=== PATIENT | male | born 1960 | race Caucasian/White ===

== ENCOUNTER 2018-06-15 10:34 | Inpatient (IN) | payer OTHER, SELFPAY ==
[2018-06-15] VITALS (60 sets, daily range): BP systolic 46–229; BP diastolic 27–141; PULSE 61–172; RESP 14–38; TEMP 36.6–37.6; O2SAT 82–100; BMI 37.2; BMI 37.1; BMI 37.3
[2018-06-15] MEDS: 0.9% Normal Saline 1,000 ML 500 ML IV (10:40)
--- NOTE | 2018-06-15 10:40 | EKG12_ITS ---
Test Reason : RYTHMCHANGE Blood Pressure : / mmHG Vent. Rate : 123 BPM Atrial Rate : 123 BPM P-R Int : 158 ms QRS Dur : 134 ms QT Int : 314 ms P-R-T Axes : 067 062 031 degrees QTc Int : 449 ms Sinus tachycardia Right bundle branch block Abnormal ECG Confirmed by KEISHA SMALL ([id number]), dictionary editor MARION JOSEPH ([id number]) on 06/18/2018 2:10:16 PM Referred By: JOSIE Confirmed By:KEISHA SMALL
--- NOTE | 2018-06-15 10:40 | RAD_ITS ---
STUDY: X-RAY CHEST REASON FOR EXAM: Male, 58 years old. Chest pain, diaphoresis TECHNIQUE: Single AP portable view of the chest. COMPARISON: None. FINDINGS: The lungs are clear and expanded. There is no demonstrated pleural abnormality. Normal size heart. Normal mediastinum and leora. Normal visualized pulmonary arteries. Normal visualized aortic arch and descending thoracic aorta. There are diffuse degenerative changes of the visualized thoracic spine. Normal visualized ribs, clavicles, and shoulders. There is no demonstrated abnormality of the visualized soft tissue structures of the upper abdomen. RAD/Chest 1 View (Portable) IMPRESSION: No acute pulmonary process Electronically Signed: Yrn Zapata MD at 11:09 EST , Service support ,
[2018-06-15] MEDS: Aspirin 81 MG TAB.CHEW 162 MG PO (10:46)
[2018-06-15] MEDS: Etomidate 20 MG/10 ML Vial 10 MG IV (10:57)
[2018-06-15 10:58] LABS: Absolute Lymphocyte Count 1.99 X10^3/ul (0.83-4.51); Absolute Neutrophil Count 19.3 X10^3/uL (2.0-7.7); Basophil# 0.02 X10^3/uL; Basophil% 0.1 % (0-1); Eosinophil# 0.03 X10^3/uL; Eosinophils% 0.1 % (0-5); Hematocrit 41.4 % (40-54); Lymphocyte # 1.99 X10^3/ul (4.0); Lymphocyte % 8.2 % (19-41); Mean Corp Hgb Conc 33.8 g/gl (32-36); Mean Corpuscular Volume 85.7 fL (80-94); Mean Platelet Vol. 10.3 fl (6.2-12.0); Monocyte# 2.95 X10^3/uL; Monocyte% 12.1 % (0-10); Neutrophil # 19.26 X10^3/uL (2.7-7.7); Neutrophil % 79.2 % (47-70); Platelet Count 293 K/mm3 (150-450); RBC Distribution Width CV 12.7 % (11.6-14.6); RBC Distribution Width SD 40.3 fl (35.1-43.9); Red Blood Count 4.83 M/mm3 (4.6-6.2); White Blood Count 24.3 K/mm3 (4.4-11.0)
[2018-06-15 10:59] LABS: Differential Indicated SCAN CRITERIA MET; POSITIVE COUNT NO; POSITIVE DIFFERENTIAL YES; POSITIVE MORPHOLOGY NO
[2018-06-15] MEDS: Rocuronium Bromide 50 MG/5 ML Vial 100 MG IV (10:59)
--- NOTE | 2018-06-15 11:00 | EKG12_ITS ---
Test Reason : CP Blood Pressure : / mmHG Vent. Rate : 147 BPM Atrial Rate : 147 BPM P-R Int : 114 ms QRS Dur : 120 ms QT Int : 334 ms P-R-T Axes : 072 080 052 degrees QTc Int : 522 ms Sinus tachycardia Right bundle branch block Abnormal ECG Confirmed by KEISHA SMALL ([id number]), social media editor MARION JOSEPH ([id number]) on 06/18/2018 2:11:13 PM Referred By: JOSIE Confirmed By:KEISHA SMALL
--- NOTE | 2018-06-15 11:02 | ED.RN ---
Dr. Hernandez at bedside.
[2018-06-15] MEDS: LORazepam 2 MG/ML Syringe 6 MG IV (11:07)
--- NOTE | 2018-06-15 11:07 | CT_ITS ---
STUDY: CTA CHEST REASON FOR EXAM: Male, 58 years old. Hypotension, hypoxia RADIATION DOSAGE (If Supplied By Facility): CTDIvol = ( 20.00 ) mGy, DLP = ( 631.09 ) mGycm TECHNIQUE: The examination was performed with the intravenous administration of 100ML ml of Isovue 370 contrast material. Post-processing of the angiographic images was performed, with multiplanar reformation and 3D reconstruction. Individualized dose optimization techniques were used for this CT. COMPARISON: None. FINDINGS: ET tube tip is 3 cm above the aniceto. Low-density filling defects noted within the distal aspects of the left pulmonary artery with extensions into the upper and lower left pulmonary lobes. There is also evidence of multiple filling defects within the right lower lobe pulmonary artery branch. Findings are consistent with bilateral PE. Normal thoracic aorta and visualized great vessels. There is no demonstrated aortic dissection. Normal heart and pericardium. There are calcifications of the coronary arteries. Normal mediastinum. Normal hilar regions. There is peribronchial thickening. The lungs are well expanded. There is a right lower lobe pneumonia with a likely right lower lobe infarct and interstitial edema. Dependent atelectasis noted in the left lung base. Normal pleura. Normal chest wall structures. There are degenerative changes of thoracic spine. Limited cuts through the upper abdomen do not show a suspicious abnormality. Normal visualized upper abdomen. CT/CTA Chest W/WO Contrast IMPRESSION: Extensive bilateral PE, more prominent on the left than the right. PE noted in the distal aspect of the left pulmonary artery, left upper and lower lobe pulmonary arteries and in the right lower lobe pulmonary artery Right lower lobe infiltrate with associated atelectasis and likely infarct Dependent atelectasis in the left lung base Degenerative bony changes Calcified coronary vessels N.B. : The above information has been verbally conveyed by Yrn Zapata MD to Shukri Martinez MD, on 06/15/2018 11:56:40 (ET). Electronically Signed: Yrn Zapata MD at 11:58 EST , Service support ,
[2018-06-15 11:11] LABS: Anion Gap 11 (5-15); BUN 11 mg/dL (7-18); Calcium,Total 8.5 mg/dL (8.5-10.1); Chloride 101 mmol/L (98-107); Creatinine, Serum 1.22 mg/dL (0.70-1.30); EST Glomerular Filtration Rate 65 mL/min (>60); Est Glom Filt Rate - Afr Amer 78 mL/min (>60); Estimated Creatinine Clearance 63.85 ml/min; Glucose 202 mg/dL (74-106); Sodium Level 134 mmol/L (136-145)
[2018-06-15] MEDS: Atropine Sulfate 1 MG/10 ML Syringe IV ×2 (11:11→11:15)
--- NOTE | 2018-06-15 11:35 | ED.VISSUMM ---
- ER Visit Summary Date of Service: 06/15/18 Chief Complaint: Chest pain, shortness of breath I am not going to make it . History of Present Illness: The patient is a 58 M who has history of coronary disease with 2 stents, hypertension and hypercholesterolemia. He also has history of MS. Pulse ox prior to arrival is unknown. His pulse ox 92% on 4 L by nasal cannula. Prior to EMS leaving their pulse ox in the field was 88%. Patient's only complaint is chest pressure shortness of breath and I am not going to make it . Physical Examination: Initial blood pressure 140/98 heart rate 154 respiratory rate 35 temperature 98.0 degrees. Patient appears asked should with poor capillary refill. Lungs reveal no wheeze rales rhonchi. Breath sounds are diminished bilaterally. Abdomen soft nontender. Is no palpable cell mass or abdominal bruit. Radial and DP pulses palpable. Patient unable to move lower extremity secondary to MS. According to he has history of coronary disease with [address] [facility] 2 years ago. She states he saw Dr. Harjinder Knight last week. Spoke with Dr. Knight he does not recall seeing the patient. Test Results: EKG rate of 147 concerning for atrial flutter. Had the paper speed increased to 50 ms and uncertain whether this is sinus tach at 150 versus atrial flutter. Since patient has deteriorated with a blood pressure 78 systolic he was prepped for cardioversion. He received 10 mg of etomidate and attempted cardioversion x2 at 200 J. Heart rate slowed to 122. EKG was obtained and reveals sinus tachycardia. There is evidence of a right bundle branch block and ST-T wave changes. There is no prior EKG for comparison. Portable chest x-ray reveals mild cardiomegaly and there is no evidence of heart failure. This raises concern for pulmonary embolus. Patient became bradycardic. He received atropine in route to the radiology suite. I accompanied him to the radiology suite. Patient developed PEA. He was treated for PEA. Please read written note by nursing staff for amounts of epinephrine, atropine, bicarb. He was started on epinephrine drip. He did require CPR. The pharmacist fill brought TPA to the radiologist suite which was started. He became hypotensive again. TPA was infused rapidly over 10 minutes. This was under my direction. The pharmacist entered heparin drip based on patient's acuity to be started immediately. Emergency Department Course and Treatment: 1. Cardioversion at 200 J x2 unsuccessful 2. Oral tracheal intubation by RSI technique for cardiogenic shock and hypoxia 3. ACLS meds for PEA 4. Right subclavian triple-lumen 5. Critical care time 63 minutes excluding billable procedure time. 6. OG per nursing staff 7. Hogan per nursing staff 8. Administration of TPA bolus by ED physician, Dr. Martinez Treatment Plan: Treat cardiogenic shock secondary to bilateral massive PE Disposition: Admit ICU Impression: 1. Cardiogenic shock secondary to bilateral pulmonary embolus 2. Respiratory failure secondary to pulmonary embolus 3. History of coronary disease This note was generated with ttwick dictation software. It may contain incorrect words, spelling, and punctuation that were not noted in review of the chart prior to signing ED Disposition - Plan for ED Patient: Chief Complaint: Chest Pain Referrals: Cruz Salgado MD [Primary Care Provider] -
[2018-06-15 12:02] LABS: International Normalized Ratio 1.2; Partial Thromboplast Time 32.2 Seconds (24.1-36.2); Prothrombin Time (Protime)PT. 14.9 SECONDS (11.7-14.9)
--- NOTE | 2018-06-15 12:04 | ED.DCSUM_ITS ---
- ER Visit Summary Date of Service: 06/15/18 Chief Complaint: Chest pain, shortness of breath I am not going to make it . History of Present Illness: The patient is a 58 M who has history of coronary disease with 2 stents, hypertension and hypercholesterolemia. He also has history of MS. Pulse ox prior to arrival is unknown. His pulse ox 92% on 4 L by nasal cannula. Prior to EMS leaving their pulse ox in the field was 88%. Patient's only complaint is chest pressure shortness of breath and I am not going to make it . Physical Examination: Initial blood pressure 140/98 heart rate 154 respiratory rate 35 temperature 98.0 degrees. Patient appears asked should with poor ca pillary refill. Lungs reveal no wheeze rales rhonchi. Breath sounds are diminished bilaterally. Abdomen soft nontender. Is no palpable cell mass or abdominal bruit. Radial and DP pulses palpable. Patient unable to move lower extremity secondary to MS. According to he has history of coronary disease with 2 stents placed at [facility] 2 years ago. She states he saw Dr. Harjinder Knight last week. Spoke with Dr. Knight he does not recall seeing the patient. Test Results: EKG rate of 147 concerning for atrial flutter. Had the paper speed increased to 50 ms and uncertain whether this is sinus tach at 150 versus atrial flutter. Since patient has deteriorated with a blood pressure 78 systolic he was prepped for cardioversion. He received 10 mg of etomidate and attempted cardioversion x2 at 200 J. Heart rate slowed to 122. EKG was obtained and reveals sinus tachycardia. There is evidence of a right bundle branch block and ST-T wave changes. There is no prior EKG for comparison. Portable chest x-ray reveals mild cardiomegaly and there is no evidence of heart failure. This raises concern for pulmonary embolus. Patient became bradycardic. He received atropine in route to the radiology suite. I accompanied him to the radiology suite. Patient developed PEA. He was treated for PEA. Please read written note by nursing staff for amounts of epinephrine, atropine, bicarb. He was started on epinephrine drip. He did require CPR. The pharmacist fill brought TPA to the radiologist suite which was started. He became hypotensive again. TPA was infused rapidly over 10 minutes. This was under my direction. The pharmacist entered heparin drip based on patient's acuity to be started immediately. Emergency Department Course and Treatment: 1. Cardioversion at 200 J x2 unsuccessful 2. Oral tracheal intubation by RSI technique for cardiogenic shock and hypoxia 3. ACLS meds for PEA 4. Right subclavian triple-lumen 5. Critical care time 63 minutes excluding billable procedure time. 6. OG per nursing staff 7. Hogan per nursing staff 8. Administration of TPA bolus by ED physician, Dr. Martinez Treatment Plan: Treat cardiogenic shock secondary to bilateral massive PE Disposition: Admit ICU Impression: 1. Cardiogenic shock secondary to bilateral pulmonary embolus 2. Respiratory failure secondary to pulmonary embolus 3. History of coronary disease This note was generated with SpectraRep dictation software. It may contain incorrect words, spelling, and punctuation that were not noted in review of the chart prior to signing ED Disposition - Plan for ED Patient: Chief Complaint: Chest Pain Referrals: Cruz Salgado MD [Primary Care Provider] -
[2018-06-15] MEDS: HEPARIN/D5w 25,000 UNITS 25,000 UNITS/250 ML IV.SOLN. 10 UNITS IV (12:09)
--- NOTE | 2018-06-15 12:09 | ECHOD_ITS ---
Reason For Study: Pulm emboli Procedure This was a 2D Doppler, Color Flow transthoracic echocardiogram. The study was technically difficult. PT SCANNED SUPINE DUE TO INTUBATION. Exam performed portable in ICU/CCU. Left Ventricle Normal size and thickness. The estimated ejection fraction is 75 %. No regional wall motion abnormalities noted. Right Ventricle Mildly dilated right ventricle. Moderately severe global right ventricular systolic dysfunction. Atria Normal left atrium. Normal right atrium. Normal atrial septum. Mitral Valve The mitral valve is structurally normal. No prolapse or stenosis seen. Tricuspid Valve Normal tricuspid valve. Mild (1+) eccentric tricuspid valve insufficiency. Right ventricular systolic pressure estimated to be 42 mmHg. Aortic Valve Normal aortic valve. Trisinus/trileaflet aortic valve. Pulmonic Valve The pulmonic valve is not well visualized. Great Vessels Normal aortic root. Normal arch. The inferior vena cava is dilated. No collapse of the inferior vena cava. Pericardium/Pleural No pericardial effusion. MMode/2D Measurements & Calculations LVIDd: 3.0 cm IVSd: 1.3 cm Ao root diam: 3.6 cm LVIDs: 1.6 cm LVPWd: 1.1 cm RVDd: 3.4 cm FS: 45.9 % LA dimension(2D): 2.8 cm Doppler Measurements & Calculations MV E max dawood: 63.8 cm/sec Lat Peak E' Dawood: 5.2 cm/sec Med Peak E' Dawood: 5.7 cm/sec MV A max dawood: 94.7 cm/sec E/E' lat: 12.4 E/E' med: 11.2 MV E/A: 0.67 Ao V2 max: 132.7 cm/sec LV V1 max: 113.8 cm/sec PA V2 max: 79.6 cm/sec Ao max P.0 mmHg LV V1 max P.2 mmHg TR max dawood: 305.2 cm/sec TR max P.3 mmHg Interpretation Summary The estimated ejection fraction is 75 % and appears underfilled. Mildly dilated right ventricle. Moderately severe global right ventricular systolic dysfunction. Mild (1+) eccentric tricuspid valve insufficiency. Right ventricular systolic pressure estimated to be 42 mmHg. Compared to outside hospital echo report dated 06/07/2016, LV funtion has remained the same, bur RVSP has increase from 32 to 43 mm Hg. RV size and function also appeared normal at that time. The study was technically limited. Ordering Physician: Tono Sarmiento D.O. Performed By: Britni Mccauley RDCS
--- NOTE | 2018-06-15 12:12 | CON.PCM_ITS ---
Reason for Consult Date of Consultation: 06/15/18 Reason for Consultation: Distributive shock/massive pulmonary embolism History of Present Illness: The patient is a 58-year-old male, with a history as outlined below, who initially presented to the emergency department on June 15 with complaints of chest pain and shortness of breath. The patient was also noted to be hypoxic in the field by EMS personnel. His reports that he has been feeling ill over the last several days with a notable cough. He does have a history of MS and is primarily wheelchair bound. He also has a known history of coronary artery disease for which he has undergone PTCA previously. On presentation to the emergency department, the patient was noted to be afebrile, tachycardic, tachypneic and hypoxic. Initial laboratory evaluation revealed an elevated white blood cell count to 24,000. Coags were within normal limits. Chemistry profile was largely unremarkable and initial troponin was negative. There was initial concern in the emergency department for the presence of atrial flutter versus sinus tachycardia. Per documentation, the patient's blood pressure deteriorated into the 70 systolic, which prompted 2 attempts at cardioversion. Over concerns for the possibility for pulmonary embolism, the decision was made to obtain a CTA chest. However, in route to radiology, the patient became bradycardic and received atropine. Nevertheless, shortly after his arrival to the radiology suite, the patient went into PEA cardiac arrest. ACLS was initiated and the patient received several rounds of epinephrine and bicarbonate. Return of spontaneous circulation was eventually achieved and the patient was able to complete the CTA chest. That imaging study demonstrated extensive bilateral clot burden along with a right lower lobe infiltrate. Shortly after the completion of the scan, the patient again experienced cardiac arrest, for which the decision was made to administer TPA for massive pulmonary embolism. The patient did have to return back to the emergency department for short period of time after the completion of the scan to stabilize the patient. A central venous catheter was placed. The patient was transitioned from an epinephrine infusion over to a Levophed drip. He was then transferred to the medical intensive care unit for ongoing management. Shortly after his arrival to the ICU, the patient became progressively hypotensive, requiring an escalation in his Levophed dose. He eventually had to be started on vasopressin and phenylephrine. Despite not receiving any form of sedation, the patient remained nonresponsive to verbal and tactile stimulation. Review of the patient's medication list did indicate that he received etomidate, Ativan and rocuronium during his emergency department stay. The exact reason for the rocuronium administration is not clear to me. Regardless, given the time that has elapsed since the aforementioned medications being administered, it was felt that the patient would have become more responsive by this time. Given the fact that the patient had received TPA, this raised concern for a potential intracranial bleed. I spent a great deal of time with the patient's and additional family members explaining his current clinical state and his overall prognosis. I did explain to them my concerns and discussed CODE STATUS with them at length. Following a family discussion, the patient's and supporting family are in agreement to transition the patient from full code to DNR CCA. Past Medical History Allergies No Known Allergies Allergy (Verified 06/15/18 10:36) Home Medications: Ambulatory Orders Medication Instructions Recorded Aspirin 325 mg PO DAILY@0800 06/15/18 Baclofen 20 mg PO 06/15/18 Furosemide [Lasix] 20 mg PO DAILY 06/15/18 Metformin HCl [Metformin HCl ER] 500 mg PO BIDCM 06/15/18 Multivitamin [Daily Multiple 1 each PO DAILY 06/15/18 Vitamin] Ocrelizumab [Ocrevus] 300 mg IV 06/15/18 Rosuvastatin Calcium 10 mg PO QHS 06/15/18 Sertraline HCl [Zoloft] 25 mg PO DAILY 06/15/18 Smoking Status: Never smoker - *Family History Maternal History Items: Unknown Review of Systems Unable to obtain accurate/complete ROS d/t: Due to current intubation and mechanical ventilation status Objective: The patient's most recent lab work, culture data and imaging studies have all been personally reviewed. - Physical Exam General: - - Currently intubated and mechanically ventilated. HEENT: Atraumatic, Normocephalic, - - Pupils are fixed, dilated and nonresponsive to light Oral: No Gingival or Mucosal Lesions/ Ulcerations, - - Endotracheal and OG tubes in place Neck: Supple, No Nodes, Trachea Midline, - - Right sided subclavian central venous catheter in place Lungs: No wheeze, Diminished, Rhonchi Cardiovascular: Normal S1, Normal S2, No murmurs, Irregular Rate, Tachycardic Abdomen: Soft, Non Tender, Hypoactive Bowel Sounds, Obese Extremities: No clubbing, No cyanosis, Cool, Diminished Peripheral Pulses, Edema Skin: No breakdown Musculoskeletal: No Tenderness to Palpation of Joints or Extremities Lymphatic: No Cervical, Supraclavicular, or Inguinal Adenopathy Neurological: - - The patient is nonsedated. He is nonresponsive to verbal, tactile and painful stimulation. No corneal or gag reflex is present. Vital Signs Temp Pulse Resp BP Pulse Ox 36.6 C 145 H 38 H 120/81 H 99 06/15/18 10:36 06/15/18 12:05 06/15/18 10:43 06/15/18 12:05 06/15/18 12:05 Oxygen Flow Rate (L/min) 4 Oxygen Delivery Method Ambu-Bag Weight: 245 lb Body Mass Index (BMI) 37.2 Laboratory Tests Past 24 Hrs 06/15/18 06/15/18 06/15/18 10:45 10:45 10:45 WBC 24.3 H RBC 4.83 Hgb 14.0 Hct 41.4 MCV 85.7 MCH 29.0 MCHC 33.8 RDW 12.7 RDW Differential 40.3 Plt Count 293 MPV 10.3 Immature Gran % (Auto) 0.300 Neut % (Auto) 79.2 H Lymph % (Auto) 8.2 L Chaves % (Auto) 12.1 H Eos % (Auto) 0.1 Baso % (Auto) 0.1 Absolute Neuts (auto) 19.3 H Absolute Lymphs (auto) 1.99 Total Counted Not Reportable Differential Comment COMMENT Diff Path Review May foll PT 14.9 INR 1.2 APTT 32.2 Sodium 134 L Potassium 4.0 Chloride 101 Carbon Dioxide 22.0 Anion Gap 11 BUN 11 Creatinine 1.22 Estim Creat Clear Calc 63.85 Est GFR (MDRD) Af Amer 78 Est GFR (MDRD) Non-Af 65 BUN/Creatinine Ratio 9.0 L Glucose 202 H Calcium 8.5 Troponin I 0.019 B-Natriuretic Peptide 06/15/18 10:45 WBC RBC Hgb Hct MCV MCH MCHC RDW RDW Differential Plt Count MPV Immature Gran % (Auto) Neut % (Auto) Lymph % (Auto) Chaves % (Auto) Eos % (Auto) Baso % (Auto) Absolute Neuts (auto) Absolute Lymphs (auto) Total Counted Differential Comment Diff Path Review PT INR APTT Sodium Potassium Chloride Carbon Dioxide Anion Gap BUN Creatinine Estim Creat Clear Calc Est GFR (MDRD) Af Amer Est GFR (MDRD) Non-Af BUN/Creatinine Ratio Glucose Calcium Troponin I B-Natriuretic Peptide Pending Clinical Impression(s) from Imaging Studies Chest X-Ray 06/15/18 10:40 IMPRESSION: No acute pulmonary process Electronically Signed: Yrn Zapata MD at 11:09 EST , Service support , Chest CTA 06/15/18 11:07 IMPRESSION: Extensive bilateral PE, more prominent on the left than the right. PE noted in the distal aspect of the left pulmonary artery, left upper and lower lobe pulmonary arteries and in the right lower lobe pulmonary artery Right lower lobe infiltrate with associated atelectasis and likely infarct Dependent atelectasis in the left lung base Degenerative bony changes Calcified coronary vessels N.B. : The above information has been verbally conveyed by Yrn Zapata MD to Shukri Martinez MD, on 06/15/2018 11:56:40 (ET). Electronically Signed: Yrn Zapata MD at 11:58 EST , Service support , Assessment/Plan RECOMMENDATIONS: 1. Obtain arterial blood gas 2. Obtain stat echocardiogram 3. Start vancomycin and Zosyn 4. Continue heparin drip 5. Continue vasopressor support in an attempt to maintain a mean arterial pressure at or above 65 mmHg. IMPRESSIONS: 1. Combined distributive and cardiogenic shock The patient appears to have suffered a massive PE leading to hemodynamic collapse and subsequent cardiac arrest. Given the patient's history of MS and essentially being wheelchair bound, I am suspicious that he may have developed extensive lower extremity venous thrombosis, which eventually embolized to his pulmonary circulation. The patient was initially resuscitated following several rounds of ACLS and did receive TPA per massive PE protocol. Despite this, the patient's clinical state remains tenuous and he has required ever increasing amounts of vasopressor support. A stat echocardiogram did reveal evidence of RV dilation and systolic dysfunction. He has been more than adequately volume resuscitated at this time. We will plan to continue vasopressor support in an attempt to maintain a mean arterial pressure at or above 65 mmHg. 2. Massive pulmonary emboli leading to cardiopulmonary arrest The patient is status post TPA administration and is currently on a heparin drip. Obtain coags and continue anticoagulation. Monitor for bleeding at sites of noncompressible vena puncture. 3. Acute hypoxemic and hypercarbic respiratory failure This is likely secondary to #2. The patient's ventilator parameters will be augmented to increase minute ventilation and decrease PCO2. Will wean FiO2 and PEEP as tolerated. In addition to the aforementioned, the patient does have evidence of right lower lobe airspace disease, which may represent an underlying infectious process and/or pulmonary infarction. He has been started on broad- spectrum antibiotics. 4. Acute kidney injury and shock liver Likely secondary to hemodynamic instability in the setting of numbers 1 and 2. Continue current supportive measures as noted above. 5. Encephalopathy Multifactorial in etiology. On reevaluation of the patient, he does appear to have fixed and dilated pupils without any significant brainstem reflexes present. My initial concern was for that of anoxic brain injury. However, given that the patient did receive TPA, the possibility of an intracranial bleed is also a possibility. However, at the present time, the patient is too uns table to perform any additional workup, including CT head. He has not received any sedating medications over the last several hours and remains nonresponsive. This likely portends a poor prognosis. 6. Right lower lobe pneumonia Continue vancomycin and Zosyn as ordered. Will obtain sputum culture. 7. Personal history of coronary artery disease/baseline history of MS Complicates care, management, recovery and prognosis. Holding home medications at the current time. 8. CODE STATUS DNR CCA. Confirmed with the patient's and additional family members. TIME: 90 minutes of critical care time, independent of procedures, was spent addressing the patient's combined distributive and cardiogenic shock, massive pulmonary emboli leading to cardiopulmonary arrest, acute respiratory failure, encephalopathy, right lower lobe pneumonia, review of all data and collaboration with the care team. ([id number], [id number]) Code Visit Procedures: 30119 Critial Care Addl 30 Min 9xxxx: [id number] Critical care first hour
--- NOTE | 2018-06-15 12:14 | PCM.HP.STD ---
Problem List (1) Pulmonary embolism Status: Acute Qualifiers: Pulmonary embolism type: saddle Chronicity: acute Acute cor pulmonale presence: with acute cor pulmonale Qualified Code(s): I26.02 - Saddle embolus of pulmonary artery with acute cor pulmonale (2) Shock Status: Acute (3) PEA (Pulseless electrical activity) Status: Acute (4) Pneumonia Status: Acute Qualifiers: Pneumonia type: due to unspecified organism Laterality: right Lung location: upper lobe of lung Qualified Code(s): J18.1 - Lobar pneumonia, unspecified organism History of Present Illness Date of Admission: 06/15/18 Chief Complaint: chest pain. The patient is a 58 year old M presents with chest pain. Per the emergency room physician, patient presented with chest pain. Currently, patient is intubated and unable to provide any history no family is currently available. Patient was appearing ashen in appearance and was noted to be hypoxic. Patient was intubated in the emergency room. Patient was noted to be tachycardic as well. State patient was sent to CAT scan, while he was in the CAT scan patient went to pulseless electrical activity and CODE BLUE was called. Patient was shocked and blood pressure and PEA did improve. Patient was then sent back to the emergency room where he was noted the patient had bilateral pulmonary emboli. The decision was made to start the patient on TPA. Patient was started on a epinephrine drip. While in the emergency room, the epinephrine was changed over to levo fed. Patient was receiving IV fluids. A right subclavian was placed by . Patient being admitted into the ICU in critical condition. Dr. Sarmiento was present during the CODE BLUE.. [] Past Medical History Allergies No Known Allergies Allergy (Verified 06/15/18 10:36) Smoking Status: Never smoker - *Family History Maternal History Items: Unknown Review of Systems Comment: Unable to obtain past medical history, surgical history, medications, family history, social history and review of systems as patient is intubated and sedated. VTE Information - Inpt Only VTE Present on Admission: Yes Patient Problems: Active and Suspected Problems Pulmonary embolism (Acute) Shock (Acute) PEA (Pulseless electrical activity) (Acute) Pneumonia (Acute) - Physical Exam General: - - Intubated and sedated HEENT: Atraumatic, Normocephalic, - - Endotracheal tube and orogastric tube in place Oral: - - Endotracheal tube and orogastric tube in place Neck: No Nodes, Thyroid Normal Size and Texture Lungs: Diminished, - - Coarse breath sounds bilaterally Cardiovascular: Tachycardic, - - No murmurs gallops or rubs Abdomen: Bowel Sounds Present, Soft, Non Tender, Non-Distended, Obese Extremities: No Calf Tenderness, Edema Skin: No rashes, No breakdown, - - Some mild mottling of the lower extremities Musculoskeletal: No Tenderness to Palpation of Joints or Extremities, No Muscle Wasting Neurological: - - No clonus. Vital Signs Temp Pulse Resp BP Pulse Ox 36.6 C 145 H 38 H 120/81 H 99 06/15/18 10:36 06/15/18 12:05 06/15/18 10:43 06/15/18 12:05 06/15/18 12:05 Oxygen Flow Rate (L/min) 4 Oxygen Delivery Method Ambu-Bag Weight: 111.13 kg Body Mass Index (BMI) 37.2 Laboratory Tests Past 24 Hrs 06/15/18 06/15/18 06/15/18 10:45 10:45 10:45 WBC 24.3 H RBC 4.83 Hgb 14.0 Hct 41.4 MCV 85.7 MCH 29.0 MCHC 33.8 RDW 12.7 RDW Differential 40.3 Plt Count 293 MPV 10.3 Immature Gran % (Auto) 0.300 Neut % (Auto) 79.2 H Lymph % (Auto) 8.2 L [place] % (Auto) 12.1 H Eos % (Auto) 0.1 Baso % (Auto) 0.1 Absolute Neuts (auto) 19.3 H Absolute Lymphs (auto) 1.99 Total Counted Not Reportable Differential Comment COMMENT Diff Path Review December foll PT 14.9 INR 1.2 APTT 32.2 Sodium 134 L Potassium 4.0 Chloride 101 Carbon Dioxide 22.0 Anion Gap 11 BUN 11 Creatinine 1.22 Estim Creat Clear Calc 63.85 Est GFR (MDRD) Af Amer 78 Est GFR (MDRD) Non-Af 65 BUN/Creatinine Ratio 9.0 L Glucose 202 H Calcium 8.5 Troponin I 0.019 B-Natriuretic Peptide 06/15/18 10:45 WBC RBC Hgb Hct MCV MCH MCHC RDW RDW Differential Plt Count MPV Immature Gran % (Auto) Neut % (Auto) Lymph % (Auto) [place] % (Auto) Eos % (Auto) Baso % (Auto) Absolute Neuts (auto) Absolute Lymphs (auto) Total Counted Differential Comment Diff Path Review PT INR APTT Sodium Potassium Chloride Carbon Dioxide Anion Gap BUN Creatinine Estim Creat Clear Calc Est GFR (MDRD) Af Amer Est GFR (MDRD) Non-Af BUN/Creatinine Ratio Glucose Calcium Troponin I B-Natriuretic Peptide Pending Clinical Impression(s) from Imaging Studies Chest X-Ray 06/15/18 10:40 IMPRESSION: No acute pulmonary process Electronically Signed: Yrn Zapata MD at 11:09 EST , Service support , Chest CTA 06/15/18 11:07 IMPRESSION: Extensive bilateral PE, more prominent on the left than the right. PE noted in the distal aspect of the left pulmonary artery, left upper and lower lobe pulmonary arteries and in the right lower lobe pulmonary artery Right lower lobe infiltrate with associated atelectasis and likely infarct Dependent atelectasis in the left lung base Degenerative bony changes Calcified coronary vessels N.B. : The above information has been verbally conveyed by Yrn Zapata MD to Shukri Martinez MD, on 06/15/2018 11:56:40 (ET). Electronically Signed: Yrn Zapata MD at 11:58 EST , Service support , Assessment/Plan All Active Problems Pulmonary embolism (Acute) Shock (Acute) PEA (Pulseless electrical activity) (Acute) Pneumonia (Acute) 1. Bilateral pulmonary emboli Currently on TPA Follow-up echocardiogram Cycle troponins Per TPA order set, cardiology and pulmonary mandatory consults 2. Shock, obstructive Secondary to above On levo fed IV fluids 3. Pulseless electrical activity Resolved Secondary to PE 4. Right lower lobe pneumonia May be pulmonary infarct Start vancomycin and Zosyn Check urinary antigens for Streptococcus and Legionella 5. Acute respiratory failure No documented hypoxia But was going to be impending patient not been intubated. On vent Pulmonary following 6. Prognosis: Guarded Code Visit Inpatient E&M: 50460 Init Hosp L3
--- NOTE | 2018-06-15 12:18 | HP.PCM_ITS ---
Problem List (1) Pulmonary embolism Status: Acute Qualifiers: Pulmonary embolism type: saddle Chronicity: acute Acute cor pulmonale presence: with acute cor pulmonale Qualified Code(s): I26.02 - Saddle embolus of pulmonary artery with acute cor pulmonale (2) Shock Status: Acute (3) PEA (Pulseless electrical activity) Status: Acute (4) Pneumonia Status: Acute Qualifiers: Pneumonia type: due to unspecified organism Laterality: right Lung location: upper lobe of lung Qualified Code(s): J18.1 - Lobar pneumonia, unspecified organism History of Present Illness Date of Admission: 06/15/18 Chief Complaint: chest pain. The patient is a 58 year old M presents with chest pain. Per the emergency room physician, patient presented with chest pain. Currently, patient is intubated and unable to provide any history no family is currently available. Patient was appearing ashen in appearance and was noted to be hypoxic. Patient was intubated in the emergency room. Patient was noted to be tachycardic as well. State patient was sent to CAT scan, while he was in the CAT scan patient went to pulseless electrical activity and CODE BLUE was called. Patient was shocked and blood pressure and PEA did improve. Patient was then sent back to the emergency room where he was noted the patient had bilateral pulmonary emboli. The decision was made to start the patient on TPA. Patient was started on a epinephrine drip. While in the emergency room, the epinephrine was changed over to levo fed. Patient was receiving IV fluids. A right subclavian was placed by . Patient being admitted into the ICU in critical condition. Dr. Sarmiento was present during the CODE BLUE.. [] Past Medical History Allergies No Known Allergies Allergy (Verified 06/15/18 10:36) Smoking Status: Never smoker - *Family History Maternal History Items: Unknown Review of Systems Comment: Unable to obtain past medical history, surgical history, medications, family history, social history and review of systems as patient is intubated and sedated. VTE Information - Inpt Only VTE Present on Admission: Yes Patient Problems: Active and Suspected Problems Pulmonary embolism (Acute) Shock (Acute) PEA (Pulseless electrical activity) (Acute) Pneumonia (Acute) - Physical Exam General: - - Intubated and sedated HEENT: Atraumatic, Normocephalic, - - Endotracheal tube and orogastric tube in place Oral: - - Endotracheal tube and orogastric tube in place Neck: No Nodes, Thyroid Normal Size and Texture Lungs: Diminished, - - Coarse breath sounds bilaterally Cardiovascular: Tachycardic, - - No murmurs gallops or rubs Abdomen: Bowel Sounds Present, Soft, Non Tender, Non-Distended, Obese Extremities: No Calf Tenderness, Edema Skin: No rashes, No breakdown, - - Some mild mottling of the lower extremities Musculoskeletal: No Tenderness to Palpation of Joints or Extremities, No Muscle Wasting Neurological: - - No clonus. Vital Signs Temp Pulse Resp BP Pulse Ox 36.6 C 145 H 38 H 120/81 H 99 06/15/18 10:36 06/15/18 12:05 06/15/18 10:43 06/15/18 12:05 06/15/18 12:05 Oxygen Flow Rate (L/min) 4 Oxygen Delivery Method Ambu-Bag Weight: 111.13 kg Body Mass Index (BMI) 37.2 Laboratory Tests Past 24 Hrs 06/15/18 06/15/18 06/15/18 10:45 10:45 10:45 WBC 24.3 H RBC 4.83 Hgb 14.0 Hct 41.4 MCV 85.7 MCH 29.0 MCHC 33.8 RDW 12.7 RDW Differential 40.3 Plt Count 293 MPV 10.3 Immature Gran % (Auto) 0.300 Neut % (Auto) 79.2 H Lymph % (Auto) 8.2 L [place] % (Auto) 12.1 H Eos % (Auto) 0.1 Baso % (Auto) 0.1 Absolute Neuts (auto) 19.3 H Absolute Lymphs (auto) 1.99 Total Counted Not Reportable Differential Comment COMMENT Diff Path Review December foll PT 14.9 INR 1.2 APTT 32.2 Sodium 134 L Potassium 4.0 Chloride 101 Carbon Dioxide 22.0 Anion Gap 11 BUN 11 Creatinine 1.22 Estim Creat Clear Calc 63.85 Est GFR (MDRD) Af Amer 78 Est GFR (MDRD) Non-Af 65 BUN/Creatinine Ratio 9.0 L Glucose 202 H Calcium 8.5 Troponin I 0.019 B-Natriuretic Peptide 06/15/18 10:45 WBC RBC Hgb Hct MCV MCH MCHC RDW RDW Differential Plt Count MPV Immature Gran % (Auto) Neut % (Auto) Lymph % (Auto) [place] % (Auto) Eos % (Auto) Baso % (Auto) Absolute Neuts (auto) Absolute Lymphs (auto) Total Counted Differential Comment Diff Path Review PT INR APTT Sodium Potassium Chloride Carbon Dioxide Anion Gap BUN Creatinine Estim Creat Clear Calc Est GFR (MDRD) Af Amer Est GFR (MDRD) Non-Af BUN/Creatinine Ratio Glucose Calcium Troponin I B-Natriuretic Peptide Pending Clinical Impression(s) from Imaging Studies Chest X-Ray 06/15/18 10:40 IMPRESSION: No acute pulmonary process Electronically Signed: Yrn Zapata MD at 11:09 EST , Service support , Chest CTA 06/15/18 11:07 IMPRESSION: Extensive bilateral PE, more prominent on the left than the right. PE noted in the distal aspect of the left pulmonary artery, left upper and lower lobe pulmonary arteries and in the right lower lobe pulmonary artery Right lower lobe infiltrate with associated atelectasis and likely infarct Dependent atelectasis in the left lung base Degenerative bony changes Calcified coronary vessels N.B. : The above information has been verbally conveyed by Yrn Zapata MD to Shukri Martinez MD, on 06/15/2018 11:56:40 (ET). Electronically Signed: Yrn Zapata MD at 11:58 EST , Service support , Assessment/Plan All Active Problems Pulmonary embolism (Acute) Shock (Acute) PEA (Pulseless electrical activity) (Acute) Pneumonia (Acute) 1. Bilateral pulmonary emboli * Currently on TPA * Follow-up echocardiogram * Cycle troponins * Per TPA order set, cardiology and pulmonary mandatory consults 2. Shock, obstructive * Secondary to above * On levo fed * IV fluids 3. Pulseless electrical activity * Resolved * Secondary to PE 4. Right lower lobe pneumonia * May be pulmonary infarct * Start vancomycin and Zosyn * Check urinary antigens for Streptococcus and Legionella 5. Acute respiratory failure * No documented hypoxia * But was going to be impending patient not been intubated. * On vent * Pulmonary following 6. Prognosis: Guarded Code Visit Inpatient E&M: 68220 Init Hosp L3
--- NOTE | 2018-06-15 12:27 | CM.ED ---
Social Work Note Referral from staff for family support as pt came in with a heart attack. Pt's , Fannie, and son, Adarsh, are present. State that the pt has been sick for the last 4 days. He had stents placed at [facility] 4 years ago. Pt does not have any advanced directives completed. Emotional support provided. Pt taken down to CT for further testing. According to pt's they have been 37 years, have 6 children and 24 grandchildren. Their son, Adarsh, was int he house when the events took place and they contacted 911. Pt does have a hx of a heart attack, but Fannie denies that they have had to do chest compressions. Physician and RN updated family on pt's status following Code Blue. Pt transferred to ICU. Escorted family. Support provided, and family made aware that SW is available if needs arise. ALEXA Bailey, FIDELIA
[2018-06-15 12:28] LABS: BNP,B-Type NATRIURETIC PEPTIDE 68.1 pg/mL (0-100)
--- NOTE | 2018-06-15 12:34 | ED.RN ---
DR GALINDO AND DR SZYMANSKI WANTED THE TPA AT [facility]. DR GALINDO GAVE THE BOLUS OF TPA.
[2018-06-15 12:39] LABS: AST(SGOT) 24 U/L (15-37); Alanine Aminotransfer ALT/SGPT 57 U/L (16-61); Albumin, Serum 3.1 g/dL (3.2-5.0); Alkaline Phosphatase 70 U/L (45-117); Bilirubin, Direct 0.24 mg/dL (0.00-0.30); CPK Total, Creatine Kinase 65 U/L (39-308); Globulin 3.6 g/dL (2.2-4.2); Protein, Total 6.7 g/dL (6.4-8.2)
--- NOTE | 2018-06-15 12:46 | RAD_ITS ---
STUDY: X-RAY - ABDOMEN/PELVIS REASON FOR EXAM: Male, 58 years old. Oral gastric tube placement. TECHNIQUE: Single AP view of the abdomen / pelvis. COMPARISON: None. FINDINGS: Atelectasis and/or infiltration in the right lower lobe. Blunting of the right costophrenic angle. The tip of the orogastric tube is in the distal body of the stomach. RAD/Abdomen Single View (Portable) IMPRESSION: The tip of the orogastric tube is in the distal portion of the body of the stomach. Right lower lobe infiltrate. Electronically Signed: Jay Callahan MD at 14:08 EST Tel [phone], Service support ,
--- NOTE | 2018-06-15 12:46 | RAD_ITS ---
STUDY: X-RAY CHEST REASON FOR EXAM: Male, 58 years old. Endotracheal tube placement. TECHNIQUE: Single AP portable view of the chest. COMPARISON: Comparison is made with prior study dated June 15, 2018 at 10:46 AM. FINDINGS: The tip of the endotracheal tube is at 3.7 cm proximal to the aniceto. A right-sided subclavian line is seen. The tip is at the junction of the superior vena cava and right atrium. An oral gastric tube is seen with the tip below the left hemidiaphragm. EKG liquids are seen. Focal infiltrate is seen in the right lower lobe with elevation of the right hemidiaphragm. Mild increased markings are also seen in the right upper lobe. There is no demonstrated pleural abnormality. Normal size heart. Normal mediastinum and leora. Normal visualized pulmonary arteries. Normal visualized aortic arch and descending thoracic aorta. There are diffuse degenerative changes of the visualized thoracic spine. Normal visualized ribs, clavicles, and shoulders. There is no demonstrated abnormality of the visualized soft tissue structures of the upper abdomen. RAD/Chest 1 View (Portable) IMPRESSION: The tip of the endotracheal tube is at 3.7 cm proximal to the aniceto. Right basilar atelectasis and/or infiltrate with elevation of the right hemidiaphragm. Electronically Signed: Jay Callahan MD at 14:10 EST Tel [phone], Service support ,
[2018-06-15] MEDS: Lactated Ringers 1,000 ML 999 ML IV (13:02)
--- NOTE | 2018-06-15 13:18 | PCM.RX.CS ---
Consult Pharmacy has been consulted to manage selected antiobiotic: Vancomycin Type of Consult: New start Suspected Infection: Other Labs: Sodium 134 mmol/L (136-145) L 06/15/18 10:45 Potassium 4.0 mmol/L (3.5-5.1) 06/15/18 10:45 Chloride 101 mmol/L (98-107) 06/15/18 10:45 Carbon Dioxide 22.0 mmol/L (21.0-32.0) 06/15/18 10:45 Anion Gap 11 (5-15) 06/15/18 10:45 BUN 11 mg/dL (7-18) 06/15/18 10:45 Creatinine 1.22 mg/dL (0.70-1.30) 06/15/18 10:45 Est GFR (MDRD) Af Amer 78 mL/min (>60) 06/15/18 10:45 Est GFR (MDRD) Non-Af 65 mL/min (>60) 06/15/18 10:45 BUN/Creatinine Ratio 9.0 RATIO (10-20) L 06/15/18 10:45 Glucose 202 mg/dL (74-106) H 06/15/18 10:45 Weight used for dosin kg Estimated Creatinine Clearance: 62 mL/min Goal Trough: 15-20 mcg/mL Pharmacy Plan for Drug Dosing: Initial dose 2000mg IV x1, continue with 1500mg IV q12h per nomogram. Trough prior to 4th dose. Pharmacy Service will continue to monitor and adjust dosing as required. Follow-Up Labs: Trough Vancomycin - 06/16 @ 2230
[2018-06-15 13:19] LABS: Hematocrit 28.6 % (40-54); Hemoglobin 9.5 g/dl (13.0-16.5); Mean Corp Hgb Conc 33.2 g/gl (32-36); Mean Corpuscular Hgb 29.8 pg (27.0-32.0); Mean Corpuscular Volume 89.7 fL (80-94); Mean Platelet Vol. 9.7 fl (6.2-12.0); Platelet Count 248 K/mm3 (150-450); RBC Distribution Width CV 12.7 % (11.6-14.6); RBC Distribution Width SD 39.8 fl (35.1-43.9); Red Blood Count 3.19 M/mm3 (4.6-6.2); Scan Indicated on CBC? Y/N YES- FLAGS NOTED; White Blood Count 31.8 K/mm3 (4.4-11.0)
[2018-06-15 13:26] LABS: Allen Test POS; Base Excess -6 mmol/L (-2 to +2); Bicarbonate 23.7 mmol/L (22-26); Blood Gas Specimen Type ART; FI02 100; Mode A-C; O2 Delivery Device Vent; PEEP 5; PO2 105 mmHG (75-100); RR 14; SITE L Radial; SO2 95 % (95-99); Time Given 1310; Total Carbon Dioxide 26 mmol/L; Vt 500; pCO2 80.9 mmHg (35-45); pH 7.07 (7.35-7.45)
[2018-06-15] MEDS: 0.9% Normal Saline 1,000 ML 150 ML IV (14:08)
[2018-06-15] MEDS: Piperacil/Tazobactam 3.375 GM/50 ML ML IV (14:33)
[2018-06-15] MEDS: 0.9% Normal Saline 1,000 ML 999 ML IV (14:55)
--- NOTE | 2018-06-15 15:17 | CM.ED ---
Social Work Note Met with Mony again. They are now accompanied by several other family members, approximately 15 family members present. They state that they are ready to speak to the physician. Dr. Sarmiento explains medical concerns and family expresses understanding. 3 family members go back to pt's room to visit prior to him being transported to [place]. Emotional support provided. Family continues to decline to need any services. 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 Made aware that SW is available if needs or questions arise. Family expresses understanding. ALEXA Bailey, FIDELIA
--- NOTE | 2018-06-15 15:30 | NURSING ---
Dr. Sarmiento in room to speak with patients family regarding health status. Code status changed per from Full code to [id number].
[2018-06-15 15:32] LABS: ALB/GLOB Ratio 0.9 RATIO (0.9-2.4); AST(SGOT) 890 U/L (15-37); Alanine Aminotransfer ALT/SGPT 834 U/L (16-61); Albumin, Serum 1.8 g/dL (3.2-5.0); Alkaline Phosphatase 70 U/L (45-117); Anion Gap 11 (5-15); BUN 14 mg/dL (7-18); BUN/Creat Ratio 8.9 RATIO (10-20); Calcium,Total 6.6 mg/dL (8.5-10.1); Chloride 104 mmol/L (98-107); Creatinine, Serum 1.57 mg/dL (0.70-1.30); EST Glomerular Filtration Rate 48 mL/min (>60); Est Glom Filt Rate - Afr Amer 59 mL/min (>60); Estimated Creatinine Clearance 49.62 ml/min; Globulin 2.1 g/dL (2.2-4.2); Glucose 246 mg/dL (74-106); Potassium 4.8 mmol/L (3.5-5.1); Protein, Total 3.9 g/dL (6.4-8.2); Sodium Level 140 mmol/L (136-145)
[2018-06-15 15:36] LABS: M R Staph aureus DNA By PCR Negative (Negative); Probe Check PASS; Specimen Processing Control PASS
[2018-06-15 15:42] LABS: Lactic Acid 7.6 mmol/L (0.4-2.0)
--- NOTE | 2018-06-15 16:05 | NURSING ---
BP not registering, into room to assess patient. No radial or femoral pulse palpated. Dr. Sarmiento notified. Confirmed by Zahra DIAZ. Family informed that patient's heart has stopped beating. Time of 1605
--- NOTE | 2018-06-15 16:11 | PCM.DEATH ---
Preliminary Cause of Pulmonary emboli Date of Admission: 06/15/18 Date of : 06/15/18 - Principle Diagnosis 1. Bilateral pulmonary emboli Currently on TPA Follow-up echocardiogram Cycle troponins Per TPA order set, cardiology and pulmonary mandatory consults 2. Shock, obstructive Secondary to above On levo fed IV fluids 3. Pulseless electrical activity Resolved Secondary to PE 4. Right lower lobe pneumonia May be pulmonary infarct Start vancomycin and Zosyn Check urinary antigens for Streptococcus and Legionella 5. Acute hypercapneic respiratory failure No documented hypoxia But was going to be impending patient not been intubated. On vent Pulmonary following 6. Suspected ICH suspected fixed, dilated pupils, absent corneal reflexes Problem List: Active and Suspected Problems Pulmonary embolism (Acute) Shock (Acute) PEA (Pulseless electrical activity) (Acute) Pneumonia (Acute) Hospital Course Presents with chest pain. Presented to the emergency room and was noted to be ashen in appearance. Was also having issues in regards to lesion or flutter. Patient was hypotensive and was felt's, initially, the related with arrhythmia and patient was shocked for his atrial fibrillation. Patient's course to continue to decline. Patient was emergently intubated in the emergency room. Patient was sent to CAT scanner where he underwent a CODE BLUE due to pulseless electrical activity. Patient was hypotensive and was started initially on epinephrine which did improve his blood pressure subsequent changed over to norepinephrine. Patient's blood pressure continued to deteriorate and vasopressin as well as phenylephrine were added. Patient was reevaluated and had fixed pupils, absent corneal reflex. Dr. Sarmiento spoke with family and patient was initially made DNR Comfort Care arrest and then when his condition became much more dire that his was imminent. Patient at 1608 on 06/15/2018. Primary cause of is bilateral pulmonary emboli. Code Visit OBSV E&M: [id number] Observ/hosp same date L3
--- NOTE | 2018-06-15 16:15 | EXP.PCM_ITS ---
Preliminary Cause of Pulmonary emboli Date of Admission: 06/15/18 Date of : 06/15/18 - Principle Diagnosis 1. Bilateral pulmonary emboli * Currently on TPA * Follow-up echocardiogram * Cycle troponins * Per TPA order set, cardiology and pulmonary mandatory consults 2. Shock, obstructive * Secondary to above * On levo fed * IV fluids 3. Pulseless electrical activity * Resolved * Secondary to PE 4. Right lower lobe pneumonia * May be pulmonary infarct * Start vancomycin and Zosyn * Check urinary antigens for Streptococcus and Legionella 5. Acute hypercapneic respiratory failure * No documented hypoxia * But was going to be impending patient not been intubated. * On vent * Pulmonary following 6. Suspected ICH * suspected * fixed, dilated pupils, absent corneal reflexes Problem List: Active and Suspected Problems Pulmonary embolism (Acute) Shock (Acute) PEA (Pulseless electrical activity) (Acute) Pneumonia (Acute) Hospital Course Presents with chest pain. Presented to the emergency room and was noted to be ashen in appearance. Was also having issues in regards to lesion or flutter. Patient was hypotensive and was felt's, initially, the related with arrhythmia and patient was shocked for his atrial fibrillation. Patient's course to continue to decline. Patient was emergently intubated in the emergency room. Patient was sent to CAT scanner where he underwent a CODE BLUE due to pulseless electrical activity. Patient was hypotensive and was started initially on epinephrine which did improve his blood pressure subsequent changed over to norepinephrine. Patient's blood pressure continued to deteriorate and vasopressin as well as phenylephrine were added. Patient was reevaluated and had fixed pupils, absent corneal reflex. Dr. Sarmiento spoke with family and patient was initially made DNR Comfort Care arrest and then when his condition became much more dire that his was imminent. Patient at 1608 on 06/15/2018. Primary cause of is bilateral pulmonary emboli. Code Visit OBSV E&M: [id number] Observ/hosp same date L3
[2018-06-15 19:01] LABS: Reflex Lactate? Y
[2018-06-18 13:55] LABS: Pathologist Review Reviewed
[2018-06-18 13:57] LABS: Pathologist Review Reviewed
== END 2018-06-15 18:13 | DRG 208 ==
LOC: ED 11:24 → ICU 12:39
PROVIDERS: Internal Medicine Critical Care Medicine; Emergency Provider Emergency Medicine; Family Provider Family Medicine; PCP Family Medicine
DX: I26.99 Other pulmonary embolism without acute cor pulmonale (principal); J96.02 Acute respiratory failure with hypercapnia; K72.00 Acute and subacute hepatic failure without coma; J18.9 Pneumonia, unspecified organism; N17.9 Acute kidney failure, unspecified; G93.40 Encephalopathy, unspecified; I62.9 Nontraumatic intracranial hemorrhage, unspecified; G35 Multiple sclerosis; R57.8 Other shock; I25.10 Atherosclerotic heart disease of native coronary artery without angina pectoris; Z66 Do not resuscitate; Z95.5 Presence of coronary angioplasty implant and graft
CPT/HCPCS: 31500; 36556; 36600; 51702; 71045; 71275; 74018; 80048; 80053; 80076; 82550; 82803; 83605; 83880; 84484; 85025; 85027; 85610; 85730; 86850; 86900; 86901; 87040; 87641; 92950; 93005; 93306; 94002; 99285; J2997; J7030; J7050; J7120; Q9967; A4216; J2405; J3490